=== PATIENT | male | born 1975 ===

== ENCOUNTER 2016-11-17 18:15 | Emergency (ER) | payer SELFPAY ==
[2016-11-17 18:27] VITALS: BP 129/73; PULSE 96; RESP 16; TEMP 98; O2SAT 96
--- NOTE | 2016-11-17 18:45 | ED PDOC ---
Lower Extremity Pain/Injury Time Seen by Provider: 11/17/16 18:20 Chief Complaint (Nursing): Lower Extremity Problem/Injury Chief Complaint (Provider): Right lower back pain History Per: Patient History/Exam Limitations: no limitations Onset/Duration Of Symptoms: Days Current Symptoms Are (Timing): Still Present Severity: Moderate Additional History Per: Patient Additional Complaint(s): The pt is a 41yo male, presents to the ED for evaluation of right lower back pain with radiation down his right leg. Pt reports he is unable to bear weight and has difficulties ambulating. Pt states he has had similar sx in the past and was recently seen in [facility] and was given Rx Percocets. Pt states he has been taking the medication with no relief. He denies any numbness or tingling to his lower extremity. Pt offers no additional medical complaints. Past Medical History Reviewed: Historical Data, Nursing Documentation, Vital Signs Vital Signs: Last Vital Signs Temp 98 F 11/17/16 18:25 Pulse 96 H 11/17/16 18:25 Resp 16 11/17/16 18:25 BP 129/73 11/17/16 18:25 Pulse Ox 96 11/17/16 18:25 - Medical History PMH: Back Problems Denies: Arthritis, CHF, COPD, HIV, HTN, Hypercholesterolemia, Hypothyroidism , Chronic Kidney Disease, Rheumatoid Arthritis - Family History Family History: States: Unknown Family Hx - Living Arrangements Living Arrangements: With Family - Social History Current smoker - smoking cessation education provided: No Alcohol: None Drugs: Denies - Home Medications Home Medications: Ambulatory Orders Medication Instructions Recorded Cyclobenzaprine HCl [Flexeril] 10 mg PO BID PRN #12 tab 12/05/14 Oxycodone HCl/Acetaminophen 1 tab PO Q6H PRN #15 tab 12/05/14 [Percocet 325 mg-5 mg] Cyclobenzaprine [Cyclobenzaprine 10 mg PO BID #14 tab 11/17/16 HCl] Ibuprofen [Motrin] 400 mg PO Q6 #30 tab 11/17/16 Magnesium Citrate [Citrate of Mag] 1.75 gm PO BID #1 bottle 11/17/16 Phosphate Enema [Fleet Enema 135 133 ml RC ONCE #1 nma 11/17/16 Ml] - Allergies Allergies/Adverse Reactions: Allergies Allergy/AdvReac Type Severity Reaction Status Date / Time No Known Allergies Allergy Verified 11/17/16 18:24 Review of Systems ROS Statement: Except As Marked, All Systems Reviewed And Found Negative Musculoskeletal: Positive for: Back Pain (right lower back pain), Leg Pain ( right, radiating from back) Neurological: Negative for: Weakness, Numbness Physical Exam - Physical Exam Appears: Positive for: Well, Non-toxic, No Acute Distress Head Exam: Positive for: ATRAUMATIC, NORMAL INSPECTION, NORMOCEPHALIC Skin: Positive for: Normal Color Eye Exam: Positive for: Normal appearance Neck: Positive for: Normal Cardiovascular/Chest: Positive for: Regular Rate, Rhythm Respiratory: Negative for: Respiratory Distress Extremity: Positive for: Normal ROM. Negative for: Deformity, Swelling Neurologic/Psych: Positive for: Alert, Oriented - ECG O2 Sat by Pulse Oximetry: 96 (RA) Pulse Ox Interpretation: Normal - Progress Re-evaluation Time: 12:35 Condition: Improved Medical Decision Making Medical Decision Making: Time: 1834 Impression: Right lower back pain Plan: -- Toradol 30 mg IM Scribe Attestation: Documented by Maria Luisa Spain acting as a scribe for HARRY Hyman Provider Attestation: All medical record entries made by the Scribe were at my direction and personally dictated by me. I have reviewed the chart and agree that the record accurately reflects my personal performance of the history, physical exam, medical decision making, and the department course for this patient. I have also personally directed, reviewed, and agree with the discharge instructions and disposition. Disposition - Clinical Impression Clinical Impression: Sciatica, Constipation - Disposition Referrals: [facility] [Outside] [facility] [Outside] [facility] [Outside] Disposition: Routine/Home Disposition Time: 12:35 Condition: STABLE Prescriptions: Cyclobenzaprine [Cyclobenzaprine HCl] 10 mg PO BID #14 tab Ibuprofen [Motrin] 400 mg PO Q6 #30 tab Magnesium Citrate [Citrate of Mag] 1.75 gm PO BID #1 bottle Phosphate Enema [Fleet Enema 135 Ml] 133 ml RC ONCE #1 nma Instructions: Lumbar Radiculopathy (ED), Back Exercises (ED)
== END 2016-11-17 19:23 | disposition home or self-care (01) ==
LOC: H.ER 18:15
DX: K59.00 Constipation, unspecified (principal)
CPT/HCPCS: 96372; 99282; J1885

== ENCOUNTER 2016-12-24 09:41 | Emergency (ER) | payer MEDICAID ==
[2016-12-24 10:02] VITALS: TEMP 98
--- NOTE | 2016-12-24 10:54 | ED PDOC ---
HPI: Back Time Seen by Provider: 12/24/16 09:52 Chief Complaint (Nursing): Back Pain History Per: Patient History/Exam Limitations: no limitations Onset/Duration Of Symptoms: Gradual (1.5 months) Quality Of Discomfort: Dull, Aching Severity: Moderate Previous Symptoms: Back Pain (sciatica) Associated Symptoms: None Exacerbating Factor(s): Movement Additional History Per: Patient Additional Complaint(s): sharp shooting pain fron the right low back to the groin down to the foot, similar to sciatica in the past, no bowel or bladder retention or incontinence, no weakness no saddles anesthesia, no weakness. Past Medical History Reviewed: Historical Data, Nursing Documentation, Vital Signs Vital Signs: Last Vital Signs Temp 98 F 12/24/16 09:57 Pulse 92 H 12/24/16 09:57 Resp 18 12/24/16 09:57 BP 129/75 12/24/16 09:57 Pulse Ox 97 12/24/16 09:57 - Medical History PMH: Back Problems Denies: Arthritis, CHF, COPD, HIV, HTN, Hypercholesterolemia, Hypothyroidism , Chronic Kidney Disease, Rheumatoid Arthritis - Family History Family History: States: Unknown Family Hx - Living Arrangements Living Arrangements: With Family - Social History Current smoker - smoking cessation education provided: No - Home Medications Home Medications: Ambulatory Orders Medication Instructions Recorded Cyclobenzaprine HCl [Flexeril] 10 mg PO BID PRN #12 tab 12/05/14 Oxycodone HCl/Acetaminophen 1 tab PO Q6H PRN #15 tab 12/05/14 [Percocet 325 mg-5 mg] Cyclobenzaprine [Cyclobenzaprine 10 mg PO BID #14 tab 11/17/16 HCl] Ibuprofen [Motrin] 400 mg PO Q6 #30 tab 11/17/16 Magnesium Citrate [Citrate of Mag] 1.75 gm PO BID #1 bottle 11/17/16 Phosphate Enema [Fleet Enema 135 133 ml RC ONCE #1 nma 11/17/16 Ml] traMADol [Ultram] 50 mg PO TID PRN #12 tab 12/24/16 - Allergies Allergies/Adverse Reactions: Allergies Allergy/AdvReac Type Severity Reaction Status Date / Time No Known Allergies Allergy Verified 11/17/16 18:24 Review of Systems ROS Statement: Except As Marked, All Systems Reviewed And Found Negative Constitutional: Negative for: Fever, Chills Cardiovascular: Negative for: Chest Pain, Palpitations Respiratory: Negative for: Cough, Shortness of Breath Gastrointestinal: Negative for: Nausea, Vomiting, Abdominal Pain, Diarrhea Genitourinary Male: Negative for: Dysuria, Scrotal Pain, Rash, Penile Pain Musculoskeletal: Positive for: Back Pain (right low back). Negative for: Neck Pain, Shoulder Pain, Arm Pain, Hand Pain, Leg Pain, Foot Pain Neurological: Negative for: Weakness, Numbness, Altered Mental Status, Headache , Dizziness Physical Exam - Reviewed Nursing Documentation Reviewed: Yes Vital Signs Reviewed: Yes - Physical Exam Appears: Positive for: No Acute Distress, Uncomfortable Head Exam: Positive for: ATRAUMATIC, NORMAL INSPECTION, NORMOCEPHALIC Eye Exam: Positive for: Normal appearance, EOMI Neck: Positive for: Normal, Painless ROM, Supple. Negative for: Decreased ROM, Limited ROM, Trachea Midline, Pain On Movement Of Neck Cardiovascular/Chest: Positive for: Regular Rate, Rhythm, Chest Non Tender. Negative for: Edema, Gallop, Murmur, Bradycardia, Tachycardia Respiratory: Positive for: Normal Breath Sounds. Negative for: Decreased Breath Sounds, Accessory Muscle Use, Crackles, Rales, Rhonchi, Stridor, Wheezing , Respiratory Distress, Plerual Rub Pulses-Dorsalis Pedis (L): 2+ Pulses-Dorsalis Pedis (R): 2+ Pulses-Radial (L): 2+ Pulses-Radial (R): 2+ Gastrointestinal/Abdominal: Positive for: Normal Exam, Bowel Sounds, Soft. Negative for: Tenderness Male Genital Exam: Positive for: normal genitalia, other (bl cremaster reflex intact). Negative for: scrotum tenderness (R), scrotum tenderness (L), testicular tenderness (R), testicular tenderness (L), urethral discharge Back: Positive for: Other (small bullae noted to mid lumbar spine). Negative for: L CVA Tenderness, R CVA Tenderness, Vertebral Tenderness Extremity: Positive for: Normal ROM, Other (+ ehl intact). 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 Negative for: Motor/Sensory Deficits, Aphasia, Facial Droop - Laboratory Results Result Diagrams: 12/24/16 11:38 12/24/16 11:38 - ECG O2 Sat by Pulse Oximetry: 97 Pulse Ox Interpretation: Normal - Progress ED Course And Treament: ct scan and labs nml. close f/u with pmd Re-evaluation Time: 12:00 Condition: Improved Disposition - Clinical Impression Clinical Impression: Low back pain - Patient ED Disposition Is Patient to be Admitted: No Counseled Patient/Family Regarding: Studies Performed, Diagnosis, Need For Followup, Rx Given - Disposition Referrals: [facility] [Outside] (2 to 3 days or with pmd) Disposition: Routine/Home Disposition Time: 12:00 Condition: GOOD Prescriptions: traMADol [Ultram] 50 mg PO TID PRN #12 tab PRN Reason: Pain, Moderate (4-7) Instructions: Acute Low Back Pain (ED) Forms: [facility] (Romansh)
[2016-12-24 11:41] LABS: BASO # 0.1 K/uL (0.0-0.2); EOS # 0.2 K/uL (0.0-0.7); EOS % 2.2 % (0.0-4.0); HEMATOCRIT 43.6 % (35.0-51.0); LYMPH # 2.4 K/uL (1.0-4.3); LYMPH % 24.6 % (20.0-40.0); MEAN CELL VOLUME 87.6 fl (80.0-94.0); MEAN CORPUSCULAR HEMOGLOBIN 29.8 pg (27.0-31.0); MEAN CORPUSCULAR HGB CONC 34.1 g/dL (33.0-37.0); MEAN PLATELET VOLUME 9.3 fl (7.2-11.7); MONO # 0.6 K/uL (0.0-0.8); MONO % 6.6 % (0.0-10.0); NEUT # 6.4 K/uL (1.8-7.0); NEUT % 65.6 % (50.0-75.0); NRBC % 0.1 % (0.0-0.0); RED CELL DISTRIBUTION WIDTH 14.4 % (11.5-14.5); WHITE BLOOD COUNT 9.8 K/uL (4.8-10.8)
[2016-12-24 11:53] LABS: ALB/GLOB RATIO 1.3 (1.0-2.1); ALKALINE PHOSPHATASE 121 U/L (38-126); ALT/SGPT 77 U/L (21-72); AST/SGOT 31 U/L (17-59); BILIRUBIN,TOTAL 0.6 mg/dl (0.2-1.3); BLOOD UREA NITROGEN 14 mg/dl (9-20); CALCIUM 9.6 mg/dL (8.4-10.2); CARBON DIOXIDE 27 mmol/L (22-30); CHLORIDE 104 mmol/L (98-107); GFR AFRICAN-AMERICAN > 60; GLUCOSE,RANDOM 96 mg/dL (75-110); LIPASE 26 U/L (23-300); POTASSIUM 4.5 MMOL/L (3.6-5.0); SODIUM 139 mmol/l (132-148); TOTAL PROTEIN 7.3 G/DL (6.3-8.2)
--- NOTE | 2016-12-24 11:53 | CT ---
PROCEDURE: CT Abdomen and Pelvis without intravenous or oral contrast HISTORY: R flank pain r/o renal stone COMPARISON: 12/10/2014. CT abdomen and pelvis. TECHNIQUE: Technique Contiguous axial images of the abdomen and pelvis without intravenous or oral contrast. Radiation dose: Total exam DLP = 1099.25 mGy-cm. This CT exam was performed using one or more of the following dose reduction techniques: Automated exposure control, adjustment of the mA and/or kV according to patient size, and/or use of iterative reconstruction technique. FINDINGS: LOWER THORAX: Unremarkable. LIVER: Hepatic steatosis. No focal masses. No intrahepatic bile duct dilatation or perihepatic ascites. GALLBLADDER AND BILE DUCTS: Unremarkable. PANCREAS: Unremarkable. No ductal dilatation. SPLEEN: Unremarkable. No splenomegaly. ADRENALS: Unremarkable. KIDNEYS AND URETERS: Unremarkable. No hydronephrosis. BLADDER: Unremarkable. No calculus. REPRODUCTIVE: Unremarkable. APPENDIX: Unremarkable. Normal appendix. STOMACH AND BOWEL: Unremarkable. No obstruction. No gross mural thickening. PERITONEUM: Unremarkable. No significant fluid collection. No free air. LYMPH NODES: Unremarkable. No enlarged lymph nodes. VASCULATURE: Unremarkable. No aortic aneurysm. BONES: No acute fracture. OTHER FINDINGS: None . IMPRESSION: No significant or acute findings to account for/ related to the clinical presentation.
[2016-12-24 13:19] LABS: RBC URINE 6 /hpf (0-3); URINE BACTERIA RARE (<OCC); URINE BILIRUBIN NEGATIVE (NEGATIVE); URINE BLOOD NEGATIVE (NEGATIVE); URINE COLOR YELLOW (YELLOW); URINE GLUCOSE (UA) NEG (Normal); URINE KETONE NEGATIVE (NEGATIVE); URINE LEUKOCYTE ESTERASE NEG Leu/uL (Negative); URINE PROTEIN 30 mg/dL (NEGATIVE); URINE UROBILINOGEN 0.2-1.0 mg/dL (0.2-1.0); WBC URINE 1 /hpf (0-5)
[2016-12-24 14:29] VITALS: BP 120/76; PULSE 81; RESP 24; O2SAT 100
== END 2016-12-24 14:30 | disposition home or self-care (01) ==
LOC: H.ER 09:41
DX: M54.5 Low back pain (principal)

== ENCOUNTER 2017-08-27 20:20 | Emergency (ER) | payer SELFPAY ==
[2017-08-27 20:29] VITALS: RESP 16
[2017-08-27] MEDS ORDERED: Sodium Chloride 0.9% 1,000 ML IV STA (20:53)
--- NOTE | 2017-08-27 20:56 | ED PDOC ---
HPI: Abdomen Time Seen by Provider: 08/27/17 20:32 Chief Complaint (Nursing): Abdominal Pain Chief Complaint (Provider): abdominal pain History Per: Patient History/Exam Limitations: no limitations Onset/Duration Of Symptoms: Days (2) Current Symptoms Are (Timing): Still Present Location Of Pain/Discomfort: Epigastric Quality Of Discomfort: Burning Associated Symptoms: Diarrhea Additional Complaint(s): 42 y/o male presents with "burning" pain to upper abdomen x 2 days. Patient states symptoms began after eating a hotdog saturday. Associated diarrhea.Patient states the pain is affecting his sleep Denies fever, nausea/ vomiting, chest pain, shortness of breath, palpitations, urinary symptoms. Past Medical History Reviewed: Historical Data, Nursing Documentation, Vital Signs Vital Signs: Last Vital Signs Temp 98.2 F 08/27/17 20:25 Pulse 84 08/27/17 20:25 Resp 16 08/27/17 20:25 BP 111/69 08/27/17 20:25 Pulse Ox 96 08/27/17 23:16 - Medical History PMH: Back Problems Denies: Arthritis, CHF, COPD, HIV, HTN, Hypercholesterolemia, Hypothyroidism , Chronic Kidney Disease, Rheumatoid Arthritis - Surgical History Surgical History: No Surg Hx - Family History Family History: States: Unknown Family Hx - Living Arrangements Living Arrangements: With Family - Home Medications Home Medications: Ambulatory Orders Medication Instructions Recorded Cyclobenzaprine HCl [Flexeril] 10 mg PO BID PRN #12 tab 12/05/14 Oxycodone HCl/Acetaminophen 1 tab PO Q6H PRN #15 tab 12/05/14 [Percocet 325 mg-5 mg] Cyclobenzaprine [Cyclobenzaprine 10 mg PO BID #14 tab 11/17/16 HCl] Ibuprofen [Motrin] 400 mg PO Q6 #30 tab 11/17/16 Magnesium Citrate [Citrate of Mag] 1.75 gm PO BID #1 bottle 11/17/16 Phosphate Enema [Fleet Enema 135 133 ml RC ONCE #1 nma 11/17/16 Ml] traMADol [Ultram] 50 mg PO TID PRN #12 tab 12/24/16 Famotidine [Pepcid] 20 mg PO BID #20 tab 08/27/17 - Allergies Allergies/Adverse Reactions: Allergies Allergy/AdvReac Type Severity Reaction Status Date / Time No Known Allergies Allergy Verified 11/17/16 18:24 Review of Systems ROS Statement: Except As Marked, All Systems Reviewed And Found Negative Gastrointestinal: Positive for: Abdominal Pain, Diarrhea Physical Exam - Reviewed Nursing Documentation Reviewed: Yes Vital Signs Reviewed: Yes - Physical Exam Appears: Positive for: Well, Non-toxic, No Acute Distress Head Exam: Positive for: ATRAUMATIC, NORMAL INSPECTION, NORMOCEPHALIC Skin: Positive for: Normal Color Eye Exam: Positive for: Normal appearance ENT: Positive for: Normal ENT Inspection Cardiovascular/Chest: Positive for: Regular Rate, Rhythm Respiratory: Positive for: Normal Breath Sounds Gastrointestinal/Abdominal: Positive for: Bowel Sounds, Soft, Tenderness ( epigastric, RUQ) Back: Positive for: Normal Inspection Extremity: Positive for: Normal ROM Neurologic/Psych: Positive for: Alert, Oriented - Laboratory Results Result Diagrams: 08/27/17 21:23 08/27/17 21:23 - ECG ECG: Positive for: Viewed By Me (reviewed by ED attending) ECG Rhythm: Positive for: Sinus Rhythm O2 Sat by Pulse Oximetry: 96 - Progress ED Course And Treament: labs, urine, ekg, abdomen u/s, IV fluids, IV pepcid EXAM: US Abdomen Limited, Right Upper Quadrant CLINICAL HISTORY: 42 years old, male; Pain; Abdominal pain; Epigastric; Additional info: Abd pain TECHNIQUE: Real-time ultrasound of the right upper quadrant with image documentation. COMPARISON: No relevant prior studies available. FINDINGS: Liver: Fatty infiltration. No mass. No intrahepatic ductal dilatation. Gallbladder: Contracted. No gallstones. No definite wall thickening. No pericholecystic fluid. No sonographic Grey's sign. Common bile duct: No dilatation. No stones. Pancreas: Unremarkable as visualized. Right kidney: Normal echogenicity. No hydronephrosis. IMPRESSION: 1. No acute findings. 2. Non-acute findings are described above. On re-eval, patient resting comfortably; states pain resolved. Patient educated on findings, discharged with rx pepcid. Advised follow up PMD 2-3 days DIet modification. Return precautions given. Disposition - Clinical Impression Clinical Impression: Abdominal pain - Patient ED Disposition Is Patient to be Admitted: No Counseled Patient/Family Regarding: Studies Performed, Diagnosis, Need For Followup, Rx Given - Disposition Referrals: [facility] [Outside] Disposition: Routine/Home Disposition Time: 23:54 Condition: IMPROVED Prescriptions: Famotidine [Pepcid] 20 mg PO BID #20 tab Instructions: Acute Abdomen (Belly Pain) Forms: [facility] (Mauritian)
[2017-08-27 21:25] LABS: BASO # 0.1 K/uL (0.0-0.2); BASO % 0.8 % (0.0-2.0); EOS # 0.1 K/uL (0.0-0.7); EOS % 1.4 % (0.0-4.0); HEMOGLOBIN 15.2 g/dL (12.0-18.0); LYMPH # 2.8 K/uL (1.0-4.3); LYMPH % 29.2 % (20.0-40.0); MEAN CELL VOLUME 90.4 fl (80.0-94.0); MEAN CORPUSCULAR HEMOGLOBIN 30.7 pg (27.0-31.0); MEAN PLATELET VOLUME 9.5 fl (7.2-11.7); MONO # 0.6 K/uL (0.0-0.8); MONO % 6.6 % (0.0-10.0); NEUT # 5.9 K/uL (1.8-7.0); NRBC % 0.1 % (0.0-0.0); RBC 4.95 Mil/uL (4.40-5.90); RED CELL DISTRIBUTION WIDTH 14.2 % (11.5-14.5); WHITE BLOOD COUNT 9.5 K/uL (4.8-10.8)
[2017-08-27 21:35] LABS: ALB/GLOB RATIO 1.1 (1.0-2.1); ALBUMIN 3.8 g/dL (3.5-5.0); ALT/SGPT 56 U/L (21-72); AST/SGOT 34 U/L (17-59); BLOOD UREA NITROGEN 18 mg/dl (9-20); CALCIUM 9.2 mg/dL (8.4-10.2); GFR AFRICAN-AMERICAN > 60; GFR NON-AFRICAN AMERICAN > 60; LIPASE 56 U/L (23-300)
[2017-08-27 22:22] LABS: URINE BILIRUBIN NEGATIVE (NEGATIVE); URINE BLOOD NEGATIVE (NEGATIVE); URINE CLARITY CLEAR (Clear); URINE COLOR YELLOW (YELLOW); URINE GLUCOSE (UA) NEG (Normal); URINE LEUKOCYTE ESTERASE NEG Leu/uL (Negative); URINE PROTEIN NEGATIVE (NEGATIVE); URINE UROBILINOGEN 0.2-1.0 mg/dL (0.2-1.0)
--- NOTE | 2017-08-27 23:06 | US ---
EXAM: US Abdomen Limited, Right Upper Quadrant CLINICAL HISTORY: 42 years old, male; Pain; Abdominal pain; Epigastric; Additional info: Abd pain TECHNIQUE: Real-time ultrasound of the right upper quadrant with image documentation. COMPARISON: No relevant prior studies available. FINDINGS: Liver: Fatty infiltration. No mass. No intrahepatic ductal dilatation. Gallbladder: Contracted. No gallstones. No definite wall thickening. No pericholecystic fluid. No sonographic Grey's sign. Common bile duct: No dilatation. No stones. Pancreas: Unremarkable as visualized. Right kidney: Normal echogenicity. No hydronephrosis. IMPRESSION: 1.No acute findings. 2.Non-acute findings are described above.
[2017-08-27 23:55] VITALS: BP 118/69; PULSE 79; TEMP 98.5; O2SAT 98
--- NOTE | 2017-08-28 11:26 | CARD ---
APPROVED REPORT EKG Measurement Heart [id number] <Conclusion> Normal sinus rhythm Normal ECG
== END 2017-08-27 23:56 | disposition home or self-care (01) ==
LOC: H.ER 20:20
DX: R10.13 Epigastric pain (principal); R19.7 Diarrhea, unspecified
CPT/HCPCS: 76705; 80053; 81003; 83690; 85025; 93005; 96374; 99283; J7040